=== PATIENT | male | born 1985 | race Caucasian/White ===

== ENCOUNTER 2024-04-14 11:41 | Emergency (ER) | payer OTHER ==
[~2024-04-14] VITALS: Ht 172.7 cm; Wt 76.5 kg
[2024-04-14 13:00] VITALS: BP 00/00
== END 2024-04-14 13:00 | disposition left against medical advice (07) ==
LOC: ED 11:41
DX: Z53.21 Procedure and treatment not carried out due to patient leaving prior to being seen by health care provider (principal)
CPT/HCPCS: 73110